=== PATIENT | female | born 1990 | race Two or more races ===

== ENCOUNTER 2016-11-14 20:54 | Emergency (ER) | payer MEDICAID ==
[~2016-11-14] VITALS: Ht 165.1 cm; Wt 62.6 kg
[~2016-11-14 20:54] MED LIST: PREN-125 PO
[2016-11-14 21:06] VITALS: BP 132/90
== END 2016-11-14 23:10 | disposition home or self-care (01) ==
LOC: ER 20:54
DX: S60.011A Contusion of right thumb without damage to nail, initial encounter (principal); Z91.040 Latex allergy status; Z79.899 Other long term (current) drug therapy; W22.8XXA Striking against or struck by other objects, initial encounter; Y93.89 Activity, other specified; Y92.89 Other specified places as the place of occurrence of the external cause; Y99.8 Other external cause status
CPT/HCPCS: 29130; 73140; 81025